=== PATIENT | female | born 1940 | race Caucasian/White ===

== ENCOUNTER 2017-08-10 07:51 | Day surgery (SDC) | payer MEDICARE ==
[~2017-08-10 07:51] MED LIST: ACETAMINOPHEN 1,000 MG/100 ML BTL IV ONE; CLINDAMYCIN 600MG/50ML PREMIX 600 MG/50 ML BAG IVPB ONE
[2017-08-10] MEDS ORDERED: BUPIVACAINE 0.5% (5MG/ML) PF 30ML VIAL IVP ONE (07:52)
[2017-08-10] MEDS ORDERED: LIDOCAINE HCL 1% MDV 20 ML VIAL SQ ONE (07:52)
--- NOTE | 2017-08-11 06:57 | Operative Note ---
DATE: 08/10/2017. PREOPERATIVE DIAGNOSIS: Left trigger thumb. POSTOPERATIVE DIAGNOSIS: Left trigger thumb. PROCEDURE: Trigger thumb release surgery. SURGEON: Shaheen Vaughn M.D. ANESTHESIA: Local. COMPLICATIONS: None. ESTIMATED BLOOD LOSS: Minimal. OPERATIVE FINDINGS: Triggering, A1 sonia. Complete release. INDICATIONS: This is a 61-year-old female who has had persistent pain and dysfunction in her thumb with catching and triggering for several years. She has failed nonoperative treatment and scheduled for trigger thumb release. I explained the risks and benefits of surgery in detail for the diagnosis and procedures including but not limited to infection, nerve injury, vessel injury, persistent pain, stiffness, numbness and tingling in her thumb, recurrence of triggering, and the need for further procedures. All of her questions were answered. The course was outlined and she agreed to proceed. PROCEDURE: The patient brought to the operating room and was placed in the supine position in preparation for the surgery. Intraoperative time out was performed. Next, we marked our incision over the A1 sonia and thumb dorsoradial and injected with 0.5% Marcaine and 1% Lidocaine without epinephrine. The skin and subcutaneous tissues were dissected down. We protected the digital nerve at all times. Dissected down to the A1 Sonia and released it; initially with a #15 blade and then completed the release proximally and distally with small curved Metzenbaum tenotomy scissors. I had her verify release with active flexion and extension, and the tendon was free. I irrigated and closed with #3-0 vertical mattress with nylon. Sterile dressing was applied and an Ramesh wrap. The patient tolerated the procedure well with no intraoperative complications. Sponge, needle, and blade counts correct. Recovery room stable, neurovascularly intact. She will be discharged as an outpatient and will follow up in two weeks. cc: Bjorn Stevenson D.O. JOB NUMBER: [id number] MTDD
== END 2017-08-10 10:45 | disposition home or self-care (01) ==
LOC: SUR 07:51
PROVIDERS: ATTEND Orthopaedic Surgery
DX: M65.312 Trigger thumb, left thumb (principal)